=== PATIENT | male | born 1970 | race Caucasian/White ===

== ENCOUNTER 2018-10-07 12:51 | Emergency (ER) | payer OTHER ==
[~2018-10-07] VITALS: Ht 180.3 cm; Wt 74.8 kg
[2018-10-07 13:15] VITALS: BP 137/95
[2018-10-07] MEDS ORDERED: DIPHTH,PERTUSS(ACELL),TET TOX 0.5 ML DISP.SYRIN. VAX IM ONE (13:30)
[2018-10-07] MEDS ORDERED: SILVER NITRATE STICK TP ONE (13:30)
[2018-10-07] MEDS ORDERED: MORPHINE SULFATE 4 MG/ML DISP.SYRIN. ONE (13:30)
[2018-10-07] MEDS ORDERED: NEOMY/BACITR/POLYMYXIN OINT PACKET. TP ONE ×2 (13:42→13:45)
[2018-10-07] MEDS ORDERED: MORPHINE SULFATE 2 MG/ML DISP.SYRIN. IM ONE (13:45)
[2018-10-07] MEDS ORDERED: MORPHINE SULFATE 4 MG/ML DISP.SYRIN. IM ONE (13:45)
--- NOTE | 2018-10-07 13:45 | PHYS DOC ---
Adult General Chief Complaint Chief Complaint: LACERATION/AVULSION HPI HPI 48-year-old male presents with laceration of the left middle finger. The patient was cutting up onions at his job when the knife sliced the side of his finger off. An entire piece of skin came off and the patient discarded it. He had quite a bit of bleeding. He was unable to get it stop bleeding so he came to the emergency room. There is involvement of the border of the nailbed. He denies any other injuries or complaints. His tetanus is not up-to-date. Patient has a history of hep C. Review of Systems Review of Systems Constitutional: Denies fever or chills [] Eyes: Denies change in visual acuity, redness, or eye pain [] HENT: Denies nasal congestion or sore throat [] Respiratory: Denies cough or shortness of breath [] Cardiovascular: No additional information not addressed in HPI [] GI: Denies abdominal pain, nausea, vomiting, bloody stools or diarrhea [] : Denies dysuria or hematuria [] Musculoskeletal: Denies back pain or joint pain [] Integument: Finger laceration[] Neurologic: Denies headache, focal weakness or sensory changes [] Endocrine: Denies polyuria or polydipsia [] All other systems were reviewed and found to be within normal limits, except as documented in this note. Current Medications Current Medications Current Medications Medications (Trade) Dose Ordered Sig/Leo Start Time Stop Time Status Last Admin Dose Admin Diphtheria/ Tetanus/Acell Pertussis (Boostrix) 0.5 ml ONCE ONCE 10/07/18 13:30 10/07/18 13:31 DC 10/07/18 13:26 0.5 ML Morphine Sulfate (Morphine 2mg Syringe) 2 mg 1X ONCE 10/07/18 13:45 10/07/18 13:45 DC Morphine Sulfate (Morphine 4mg Syringe) 2 mg 1X ONCE 10/07/18 13:45 10/07/18 13:46 10/07/18 13:35 2 MG Silver Nitrate/ Potassium Nitrate 1 each 1X ONCE 10/07/18 13:30 10/07/18 13:31 DC 10/07/18 13:28 1 EACH Allergies Allergies Allergies Coded Allergies Type Severity Reaction Last Updated Verified No Known Drug Allergies 10/07/18 No Physical Exam Physical Exam Constitutional: Well developed, well nourished, no acute distress, non-toxic appearance. [] HENT: Normocephalic, atraumatic, bilateral external ears normal, oropharynx moist, no oral exudates, nose normal. [] Eyes: PERRLA, EOMI, conjunctiva normal, no discharge. [] Neck: Normal range of motion, no tenderness, supple, no stridor. [] Cardiovascular:Heart rate regular rhythm, no murmur [] Lungs & Thorax: Bilateral breath sounds clear to auscultation [] Abdomen: Bowel sounds normal, soft, no tenderness, no masses, no pulsatile masses. [] Skin: One centimeter laceration that distal left third digit. The overlying skin is completely removed. The edge of the nailbed is involved.[] Back: No tenderness, no CVA tenderness. [] Extremities: No tenderness, no cyanosis, no clubbing, ROM intact, no edema. [] Neurologic: Alert and oriented X 3, normal motor function, normal sensory function, no focal deficits noted. [] Psychologic: Affect normal, judgement normal, mood normal. [] EKG EKG [] Radiology/Procedures Radiology/Procedures [] Course & Med Decision Making Course & Med Decision Making Pertinent Labs and Imaging studies reviewed. (See chart for details) The patient's laceration was not amenable to repair. I placed a finger tourniquet and then used chemical cautery with silver nitrate to seal the bed of the skin. I then removed the tourniquet and this controlled the bleeding. Triple antibiotic ointment and a clean dressing was applied. The patient was given tetanus shot. The patient did have significant pain with the cauterization so a shot of 2 mg of morphine IM was given. The patient is stable for discharge at this time. [] Dragon Disclaimer Dragon Disclaimer This electronic medical record was generated, in whole or in part, using a voice recognition dictation system. Departure Departure: Impression: Primary Impression: Laceration of left middle finger with damage to nail Disposition: 01 HOME, SELF-CARE Condition: STABLE Referrals: PCP,NO (PCP) Patient Instructions: Fingertip Laceration Problem Qualifiers Primary Impression: Laceration of left middle finger with damage to nail Encounter type: initial encounter Foreign body presence: without foreign body Qualified Codes: S61.313A - Laceration without foreign body of left middle finger with damage to nail, initial encounter NELLIE LARIOS 31, 2019 13:45
[2018-10-07] MEDS ORDERED: HYDR-1179 PO (19:19)
== END 2018-10-07 14:00 | disposition home or self-care (01) ==
LOC: ER 12:51
DX: S61.313A Laceration without foreign body of left middle finger with damage to nail, initial encounter (principal); W26.0XXA Contact with knife, initial encounter; Y93.89 Activity, other specified; Y92.89 Other specified places as the place of occurrence of the external cause; Y99.0 Civilian activity done for income or pay
CPT/HCPCS: 90471; 90715; 96372; 99283; J2270

== ENCOUNTER 2018-10-07 18:46 | Emergency (ER) | payer OTHER ==
[~2018-10-07] VITALS: Ht 180.3 cm; Wt 74.8 kg
--- NOTE | 2018-10-07 18:48 | ED.ADGEN ---
Past History Past Medical History: Hepatitis Past Surgical History: Cholecystectomy Alcohol Use: None Drug Use: None Adult General Chief Complaint Chief Complaint ".. I was cutting onions at work.. and nicked off my bird finger... I was here earlier.. and they did some silver nitrate.. but it is bleeding again.. and it hurts like heck..." HPI HPI Patient is a 48 year old male who presents with above hx and complaints continued bleeding from small avulsion amputation of tip Lt middle finger he cut at work. Reviewed prior chart. Patient has no history of coagulopathy. Patient is right-hand dominant. Patient dressing reinforced. Patient given Vicoprofen for discomfort. Patient to follow-up primary care. Patient follow up with work comp. Patient return if any concerns. Review of Systems Review of Systems Constitutional: Denies fever or chills [] Eyes: Denies change in visual acuity, redness, or eye pain [] HENT: Denies nasal congestion or sore throat [] Respiratory: Denies cough or shortness of breath [] Cardiovascular: No additional information not addressed in HPI [] GI: Denies abdominal pain, nausea, vomiting, bloody stools or diarrhea [] : Denies dysuria or hematuria [] Musculoskeletal: Denies back pain or joint pain [] Integument: Denies rash or skin lesions []complains of continued bleeding to right left middle finger from prior laceration/avulsion. Neurologic: Denies headache, focal weakness or sensory changes [] Endocrine: Denies polyuria or polydipsia [] All other systems were reviewed and found to be within normal limits, except as documented in this note. Family History Family History Noncontributory Current Medications Current Medications Current Medications Medications (Trade) Dose Ordered Sig/[facility] Start Time Stop Time Status Last Admin Dose Admin Hydrocodone Bitartrate/ Ibuprofen (Vicoprofen 7.5-200) 2 tab 1X ONCE 10/07/18 19:15 10/07/18 19:17 DC 10/07/18 19:31 2 TAB Allergies Allergies Allergies Coded Allergies Type Severity Reaction Last Updated Verified No Known Drug Allergies 10/07/18 No Physical Exam Physical Exam Constitutional: Mild distress, non-toxic appearance. [] HENT: Normocephalic, atraumatic, bilateral external ears normal, oropharynx moist, no oral exudates, nose normal. [] Eyes: PERRLA, EOMI, conjunctiva normal, no discharge. [] Neck: Normal range of motion, no tenderness, supple, no stridor. [] Cardiovascular:Heart rate regular rhythm, no murmur [] Lungs & Thorax: Bilateral breath sounds equal with scattered wheezes on auscultation [] Abdomen: Bowel sounds normal, soft, no tenderness, no masses, no pulsatile masses. [] Skin: Warm, dry, no erythema, no rash. [] Back: No tenderness, no CVA tenderness. [] Extremities: No tenderness, no cyanosis, no clubbing, ROM intact, no edema. [] Laceration dressing is reinforced. Neurologic: Alert and oriented X 3, normal motor function, normal sensory function, no focal deficits noted. [] Psychologic: Affect anxious, judgement normal, mood normal. [] Current Patient Data Vital Signs Vital Signs Date Time Temp Pulse Resp B/P (MAP) Pulse Ox O2 Delivery O2 Flow Rate FiO2 10/07/18 19:30 98.2 88 20 138/84 (102) 98 10/07/18 18:50 Room Air EKG EKG [] Radiology/Procedures Radiology/Procedures [] Course & Med Decision Making Course & Med Decision Making Pertinent Labs and Imaging studies reviewed. (See chart for details) Patient leave current dressing in place. Patient take Tylenol and or ibuprofen for pain. For marked pain may take Vicoprofen. Patient follow-up work comp. Patient return if any concerns. [] Final Impression Final Impression 1. Finger Tip avulsion/ amputation 3rd Lt. [] Dragon Disclaimer Dragon Disclaimer This electronic medical record was generated, in whole or in part, using a voice recognition dictation system. Discharge Summary Visit Information Final Diagnosis Problems Medical Problems: (1) Finger amputation, traumatic Status: Acute Brief Hospital Course Allergies Allergies Coded Allergies Type Severity Reaction Last Updated Verified No Known Drug Allergies 10/07/18 No Vital Signs Vital Signs Date Time Temp Pulse Resp B/P (MAP) Pulse Ox O2 Delivery O2 Flow Rate FiO2 10/07/18 19:30 98.2 88 20 138/84 (102) 98 10/07/18 18:50 Room Air Brief Hospital Course Mr. Samuels is a 48 old male who presented with laceration Lt middle finger. Pt. returned over concerns of continue bleeding. Dressing re-enforced. Discharge Information Condition at Discharge: Improved, Stable Disposition/Orders: D/C to Home Dischare Medications Current Medications Hydrocodone Bitartrate/ Ibuprofen (Vicoprofen 7.5-200) 2 tab 1X ONCE PO Last administered on 10/07/18at 19:31; Admin Dose 2 TAB; Start 10/07/18 at 19:15; Stop 10/07/18 at 19:17; Status DC Active Scripts Active Hydrocodone-Ibuprofen 7.5-200 (Hydrocodone/Ibuprofen) 1 Each Tablet 1 Tab PO PRN Q6HRS PRN Dragon Disclaimer This chart was dictated in whole or in part using Voice Recognition software in a busy, high-work load, and often noisy Emergency Department environment. It may contain unintended and wholly unrecognized errors or omissions. CRISTIANO STAHL MD Oct 07, 2018 18:48
[2018-10-07] MEDS ORDERED: HYDROcodon/IBUPROFEN 7.5/200MG 1 TAB TABLET PO ONE (19:15)
[2018-10-07] MEDS ORDERED: HYDR-1179 PO (19:19)
[2018-10-07 19:30] VITALS: BP 138/84
== END 2018-10-07 19:47 | disposition home or self-care (01) ==
LOC: ER 18:46
DX: S61.313D Laceration without foreign body of left middle finger with damage to nail, subsequent encounter (principal); W26.0XXD Contact with knife, subsequent encounter
CPT/HCPCS: 99283